=== PATIENT | female | born 1950 | race Caucasian/White ===

== ENCOUNTER 2023-09-23 00:31 | Emergency (ER) | payer OTHER, MEDICARE ==
[2023-09-23 00:43] VITALS: BP 142/80
[2023-09-23 03:00] VITALS: BP 142/80
== END 2023-09-23 03:20 | disposition home or self-care (01) | DRG 914 ==
LOC: ED 00:31
DX: S09.90XA Unspecified injury of head, initial encounter (principal); R42 Dizziness and giddiness; V40.5XXA Car driver injured in collision with pedestrian or animal in traffic accident, initial encounter